=== PATIENT | female | born 1975 | race Caucasian/White ===

== ENCOUNTER 2021-07-07 13:45 | Emergency (ER) | payer MEDICAID ==
[~2021-07-07] VITALS: Ht 167.6 cm; Wt 104.5 kg
[~2021-07-07 13:45] MED LIST: CARB100T53 PO; LEVE500T53 PO; OXYC30TA86 PO; PHEN30TA42 PO; SULF-168 PO
[2021-07-07 14:01] VITALS: BP 110/99
[2021-07-07] MEDS ORDERED: METF-960 PO (15:26)
== END 2021-07-07 16:28 | disposition left against medical advice (07) ==
LOC: EMS 13:50
DX: I10 Essential (primary) hypertension (principal); Z53.21 Procedure and treatment not carried out due to patient leaving prior to being seen by health care provider

== ENCOUNTER 2021-07-26 20:46 | Emergency (ER) | payer MEDICAID ==
[~2021-07-26] VITALS: Ht 165.1 cm; Wt 99.1 kg
[~2021-07-26 20:46] MED LIST changes: -CARB100T53 PO; +METF-960 PO; -OXYC30TA86 PO; -SULF-168 PO
[2021-07-26] MEDS ORDERED: PROP10TA73 PO (21:22)
[2021-07-27] MEDS ORDERED: DiphenhydrAMINE HCL 50 MG/ML VIAL IVP STA (01:25)
[2021-07-27] MEDS ORDERED: ACETAMINOPHEN 500 MG TABLET PO ONE (01:30)
[2021-07-27] MEDS ORDERED: METOCLOPRAMIDE HCL 5 MG/ML 2 ML VIAL IVP ONE (01:30)
[2021-07-27 01:47] LABS: BASOPHILS % (AUTO) 0.4 % (0.0-2.0); EOSINOPHILS % (AUTO) 2.8 % (1.0-6.0); HEMATOCRIT 42.5 % (36-46); HEMOGLOBIN 13.8 g/dL (12.0-16.0); LYMPHOCYTES # (AUTO) 2.1 K/uL (1.0-4.8); LYMPHOCYTES % (AUTO) 34.3 % (22.0-44.0); MEAN CORPUSCULAR HEMOGLOBIN 29.8 pg (26.0-34.0); MEAN CORPUSCULAR HGB CONC 32.4 G/dL (31.0-37.0); MEAN CORPUSCULAR VOLUME 92 fL (80-100); MONOCYTES # (AUTO) 0.8 K/uL (0.1-1.0); NEUTROPHILS % (AUTO) 49.5 % (40.0-70.0); PLATELET COUNT (AUTO) 344 K/uL (150-450); RED BLOOD CELL COUNT(AUTO) 4.61 MIL/uL (4.00-5.20); RED CELL DISTRIBUTION WIDTH 13.6 % (11.5-14.5)
[2021-07-27 01:57] LABS: ANION GAP 12 mmol/L (8-16); CALCIUM, TOTAL 8.6 mg/dL (8.8-10.5); CARBON DIOXIDE 29 mmol/L (22-29); CHLORIDE 102 mmol/L (98-107); CREATININE 0.94 mg/dL (0.60-1.30); GLOMERULAR FILTR. RATE CALC > 60 mL/min (>60); GLUCOSE,RANDOM 85 mg/dL (70-110); POTASSIUM 3.9 mmol/L (3.5-5.1); SODIUM SERUM 143 mmol/L (136-145); UREA NITROGEN, BLOOD 11 mg/dL (7-18)
[2021-07-27 01:59] LABS: INR 2.3 (0.9-1.1); PROTHROMBIN TIME 22.5 SEC (9.4-11.6)
[2021-07-27 02:00] LABS: B-TYPE NATRIURETIC PEPTIDE 8 pg/mL (0-100)
[2021-07-27 02:22] LABS: ALANINE AMINOTRANSFERASE 29 U/L (12-78); ALBUMIN 3.6 g/dL (3.4-5.0); ALKALINE PHOSPHATASE 102 U/L (46-116); ASPARTATE AMINOTRANSFERASE 21 U/L (15-37); BILIRUBIN,TOTAL 0.2 mg/dL (0.1-1.0); CREATINE KINASE, TOTAL ONLY 104 U/L (26-192); HCG,QUANTITATIVE < 1 mIU/mL (0-6); TOTAL PROTEIN, SERUM 7.6 g/dL (6.4-8.2)
[2021-07-27] MEDS ORDERED: MORPHINE SULFATE 4 MG/ML SYRINGE IVP ONE (02:30)
[2021-07-27] MEDS ORDERED: ONDANSETRON HCL 4 MG/2 ML VIAL IVP ONE (02:30)
[2021-07-27 03:38] LABS: PROTHROMBIN TIME 10.8 SEC (9.4-11.6)
[2021-07-27 04:31] VITALS: BP 121/83
== END 2021-07-27 04:38 | disposition home or self-care (01) ==
LOC: EMS 20:59
DX: R51.9 Headache, unspecified (principal); R42 Dizziness and giddiness; F41.9 Anxiety disorder, unspecified; F31.9 Bipolar disorder, unspecified; F11.90 Opioid use, unspecified, uncomplicated; Z79.84 Long term (current) use of oral hypoglycemic drugs; Z79.899 Other long term (current) drug therapy; Z87.891 Personal history of nicotine dependence
CPT/HCPCS: 36415; 70450; 71045; 80053; 82550; 82962; 83880; 84484; 84702; 85025; 85610; 85730; 93005; 96374; 96375; 99285; J1200; J2765

== ENCOUNTER 2021-07-30 20:16 | Emergency (ER) | payer MEDICAID ==
[~2021-07-30] VITALS: Ht 165.1 cm; Wt 109.1 kg
[~2021-07-30 20:16] MED LIST changes: +PROP10TA73 PO
[2021-07-30 20:35] VITALS: BP 117/72
[2021-07-30] MEDS ORDERED: ACETAMINOPHEN 500 MG TABLET PO ONE (20:45)
[2021-07-30] MEDS ORDERED: LIDOCAINE 5% TRANSDERMAL PATCH TD ONE (20:45)
[2021-07-30] MEDS ORDERED: PHEN60TA16 PO (20:45)
[2021-07-30] MEDS ORDERED: DICLOFENAC SODIUM 1% 100 GM GEL [4GM] TP ONE (20:45)
== END 2021-07-30 21:40 | disposition home or self-care (01) ==
LOC: EMS 20:17
DX: M25.561 Pain in right knee (principal); F41.9 Anxiety disorder, unspecified; F31.9 Bipolar disorder, unspecified; F17.210 Nicotine dependence, cigarettes, uncomplicated; F11.90 Opioid use, unspecified, uncomplicated; Z79.84 Long term (current) use of oral hypoglycemic drugs
CPT/HCPCS: 99284; 73562-TC; Z7502; Z7610

== ENCOUNTER 2021-08-04 16:19 | Emergency (ER) | payer MEDICAID ==
[~2021-08-04] VITALS: Ht 167.6 cm; Wt 109.1 kg
[~2021-08-04 16:19] MED LIST changes: +LEVE500T20 PO; -LEVE500T53 PO; -PHEN30TA42 PO; +PHEN60TA16 PO
[2021-08-04] MEDS ORDERED: DiphenhydrAMINE HCL 25 MG CAPSULE PO ONE (18:30)
[2021-08-04] MEDS ORDERED: PredniSONE 20 MG TABLET PO ONE (18:30)
[2021-08-04 18:44] VITALS: BP 124/77
== END 2021-08-04 18:44 | disposition home or self-care (01) ==
LOC: EMS 16:21
DX: L50.9 Urticaria, unspecified (principal); F31.9 Bipolar disorder, unspecified; F41.9 Anxiety disorder, unspecified; Z87.891 Personal history of nicotine dependence; Z79.84 Long term (current) use of oral hypoglycemic drugs; Z79.899 Other long term (current) drug therapy
CPT/HCPCS: 99283; J7512

== ENCOUNTER 2021-08-18 20:29 | Inpatient (IN) | payer MEDICAID ==
[~2021-08-18] VITALS: Ht 162.6 cm; Wt 110.7 kg
[~2021-08-18 20:29] MED LIST changes: +METF-1211 PO; -METF-960 PO
[2021-08-18] MEDS ORDERED: SIMV-259 PO (20:36)
[2021-08-18] MEDS ORDERED: QUET200T PO (20:36)
[2021-08-18] MEDS ORDERED: BUSP15 PO (20:36)
[2021-08-18] MEDS ORDERED: HYDR50CA9 PO (20:36)
[2021-08-18] MEDS ORDERED: BUPR1FIL3 SL (20:53)
[2021-08-18] MEDS ORDERED: HALOPERIDOL 5 MG TABLET PO PRN (21:45)
[2021-08-18 22:42] LABS: BASOPHILS % (AUTO) 0.5 % (0.0-2.0); EOSINOPHILS % (AUTO) 6.1 % (1.0-6.0); HEMATOCRIT 43.4 % (36-46); HEMOGLOBIN 14.3 g/dL (12.0-16.0); LYMPHOCYTES # (AUTO) 1.8 K/uL (1.0-4.8); MEAN CORPUSCULAR HEMOGLOBIN 29.7 pg (26.0-34.0); MEAN CORPUSCULAR HGB CONC 32.9 G/dL (31.0-37.0); MEAN CORPUSCULAR VOLUME 90 fL (80-100); MONOCYTES # (AUTO) 1.3 K/uL (0.1-1.0); MONOCYTES % (AUTO) 13.6 % (2.0-9.0); NEUTROPHILS # (AUTO) 5.8 K/uL (1.8-7.7); NEUTROPHILS % (AUTO) 60.8 % (40.0-70.0); PLATELET COUNT (AUTO) 271 K/uL (150-450); RED CELL DISTRIBUTION WIDTH 14.2 % (11.5-14.5)
[2021-08-18] MEDS ORDERED: PROPRANOLOL HCL 10 MG TABLET PO ONE (22:45)
[2021-08-18] MEDS ORDERED: MetFORMIN HCL 500 MG TABLET PO ONE (22:45)
[2021-08-18] MEDS ORDERED: BUPRENORPHINE HCL/NALOXONE HCL 2-0.5 MG SUBLINGUAL TABLET SL ONE (22:45)
[2021-08-18 22:53] LABS: ANION GAP 11 mmol/L (8-16); CALCIUM, TOTAL 8.8 mg/dL (8.8-10.5); CARBON DIOXIDE 26 mmol/L (22-29); CHLORIDE 104 mmol/L (98-107); CREATININE 0.79 mg/dL (0.60-1.30); GLOMERULAR FILTR. RATE CALC > 60 mL/min (>60); GLUCOSE,RANDOM 109 mg/dL (70-110); POTASSIUM 4.1 mmol/L (3.5-5.1); SALICYLATE 3.9 mg/dL (2.8-20.0); SODIUM SERUM 141 mmol/L (136-145); UREA NITROGEN, BLOOD 15 mg/dL (7-18)
[2021-08-18 22:58] LABS: ALANINE AMINOTRANSFERASE 24 U/L (12-78); ALBUMIN 3.5 g/dL (3.4-5.0); ALKALINE PHOSPHATASE 73 U/L (46-116); ASPARTATE AMINOTRANSFERASE 15 U/L (15-37); BILIRUBIN,TOTAL 0.3 mg/dL (0.1-1.0); TOTAL PROTEIN, SERUM 7.2 g/dL (6.4-8.2)
[2021-08-18 23:01] LABS: ACETAMINOPHEN < 2 mcg/mL (10-30)
[2021-08-18 23:04] LABS: AMPHET/METH SCREEN,URINE NEGATIVE (NEGATIVE); BARBITURATE SCREEN, URINE POSITIVE (NEGATIVE); BENZODIAZEPINES SCREEN,URINE NEGATIVE (NEGATIVE); CANNABINOID SCREEN,URINE NEGATIVE (NEGATIVE); COCAINE SCREEN,URINE NEGATIVE (NEGATIVE); METHADONE SCREEN, URINE NEGATIVE (NEGATIVE); OPIATE SCREEN,URINE NEGATIVE (NEGATIVE)
[2021-08-18 23:05] LABS: PHENCYCLIDINE SCREEN,URINE NEGATIVE (NEGATIVE)
[2021-08-18 23:27] LABS: APPEARANCE,URINE CLEAR (CLEAR); BILIRUBIN,URINE NEGATIVE (NEGATIVE); GLUCOSE, URINE (UA) NEGATIVE (NEGATIVE); KETONES,URINE TRACE mg/dL (NEGATIVE); LEUKOCYTE ESTERASE ,URINE NEGATIVE (NEGATIVE); NITRATE,URINE NEGATIVE (NEGATIVE); OCCULT BLOOD,URINE NEGATIVE (NEGATIVE); PROTEIN,URINE NEGATIVE (NEGATIVE)
[2021-08-18 23:45] LABS: COVID AG,FIA SOURCE NASOPHARYNGEAL
[2021-08-19 02:32] VITALS: BP 110/54
[2021-08-19] MEDS ORDERED: INFLUENZA VIRUS VACCINE QVS 2021-22 (6MO+)/PF 60 MCG/0.5 ML SYRINGE IM. ONE (04:00)
[2021-08-19] MEDS ORDERED: PNEUMOCOCCAL VACCINE POLYVALENT 0.5 ML VIAL [PPSV23] IM. ONE (04:00)
[2021-08-19 08:14] VITALS: BP 114/60
[2021-08-19 08:20] LABS: CHOL/HDL RATIO 4.5 (3.9-5.7)
[2021-08-19] MEDS ORDERED: ACETAMINOPHEN 325 MG TABLET PO PRN (08:45)
[2021-08-19] MEDS ORDERED: BENZOCAINE/MENTHOL LOZENGE PO PRN (08:45)
[2021-08-19] MEDS ORDERED: ONDANSETRON HCL 4 MG TABLET PO PRN (08:45)
[2021-08-19] MEDS ORDERED: OMEPRAZOLE 20 MG CAPSULE PO PRN (08:45)
[2021-08-19] MEDS ORDERED: CloNIDine HCL 0.1 MG TABLET PO PRN (08:45)
[2021-08-19] MEDS ORDERED: BACITRACIN 28 GM OINTMENT TP PRN (08:45)
[2021-08-19] MEDS ORDERED: PETROLATUM,WHITE 28 GM JELLY TP PRN (08:45)
[2021-08-19] MEDS ORDERED: LOPERAMIDE HCL 2 MG CAPSULE PO PRN (08:45)
[2021-08-19] MEDS ORDERED: MAG HYDROX/AL HYDROX/SIMETH ES 30 ML SUSPENSION UDCUP PO PRN (08:45)
[2021-08-19] MEDS ORDERED: MAGNESIUM HYDROXIDE SUSPENSION 30 ML UDCUP PO PRN (08:45)
[2021-08-19] MEDS ORDERED: ALBUTEROL SULFATE HFA 90 MCG/PUFF 8 GM INHALER IH PRN (08:45)
[2021-08-19] MEDS ORDERED: DOCUSATE SODIUM 100 MG CAPSULE PO PRN (08:45)
[2021-08-19] MEDS: OMEGA-3/DHA/EPA/FISH OIL 1,000 MG CAPSULE PO SCH (09:09)
[2021-08-19] MEDS: LevETIRAcetam 500 MG TABLET PO SCH ×2 (09:09→16:19)
[2021-08-19] MEDS: PROPRANOLOL HCL 10 MG TABLET PO SCH ×2 (09:12→16:19)
[2021-08-19] MEDS: SERTRALINE HCL 50 MG TABLET PO SCH (16:19)
[2021-08-19 16:40] VITALS: BP 110/65
[2021-08-19 16:47] LABS: GLUCOMETER DEV NAME(LOC) ERT.5; GLUCOSE,POINT OF CARE 129 MG/DL (70-110)
[2021-08-19] MEDS ORDERED: SERTRALINE HCL 50 MG TABLET PO SCH (17:00)
[2021-08-19] MEDS: DIVALPROEX SODIUM 500 MG ER TABLET PO SCH (17:58)
[2021-08-19] MEDS: BusPIRone HCL 15 MG TABLET PO SCH (17:59)
[2021-08-19] MEDS: SIMVASTATIN 10 MG TABLET PO SCH (20:13)
[2021-08-19] MEDS: QUEtiapine FUMARATE 200 MG TABLET PO SCH (20:14)
[2021-08-20 00:25] VITALS: BP 108/71
[2021-08-20 08:03] VITALS: BP 100/60
[2021-08-20] MEDS: BusPIRone HCL 15 MG TABLET PO SCH ×2 (08:42→17:49)
[2021-08-20] MEDS: LevETIRAcetam 500 MG TABLET PO SCH ×2 (08:43→17:28)
[2021-08-20] MEDS: OMEGA-3/DHA/EPA/FISH OIL 1,000 MG CAPSULE PO SCH (08:43)
[2021-08-20] MEDS: SERTRALINE HCL 50 MG TABLET PO SCH (08:43)
[2021-08-20] MEDS: DIVALPROEX SODIUM 500 MG ER TABLET PO SCH ×2 (08:43→17:29)
[2021-08-20] MEDS: PROPRANOLOL HCL 10 MG TABLET PO SCH ×2 (09:00→17:00)
[2021-08-20] MEDS ORDERED: METF-911 PO (14:42)
[2021-08-20 17:15] VITALS: BP 102/76
[2021-08-20] MEDS: BUPRENORPHINE HCL/NALOXONE HCL 8-2 MG SUBLINGUAL TABLET SL SCH (17:49)
[2021-08-20] MEDS: MELATONIN 5 MG TABLET PO SCH (20:33)
[2021-08-20] MEDS: QUEtiapine FUMARATE 200 MG TABLET PO SCH (20:33)
[2021-08-20] MEDS: SIMVASTATIN 10 MG TABLET PO SCH (20:34)
[2021-08-21 00:03] VITALS: BP 100/62
[2021-08-21 08:22] VITALS: BP 125/63
[2021-08-21] MEDS: PROPRANOLOL HCL 10 MG TABLET PO SCH ×2 (08:22→16:35)
[2021-08-21] MEDS: DIVALPROEX SODIUM 500 MG ER TABLET PO SCH ×3 (08:22→16:35)
[2021-08-21] MEDS: LevETIRAcetam 500 MG TABLET PO SCH ×3 (08:22→16:35)
[2021-08-21] MEDS: OMEGA-3/DHA/EPA/FISH OIL 1,000 MG CAPSULE PO SCH (08:22)
[2021-08-21] MEDS: BusPIRone HCL 15 MG TABLET PO SCH ×2 (08:23→16:35)
[2021-08-21] MEDS: SERTRALINE HCL 50 MG TABLET PO SCH (08:23)
[2021-08-21] MEDS: BUPRENORPHINE HCL/NALOXONE HCL 8-2 MG SUBLINGUAL TABLET SL SCH ×2 (08:24→16:36)
[2021-08-21 16:05] VITALS: BP 105/70
[2021-08-21] MEDS: MELATONIN 5 MG TABLET PO SCH (20:54)
[2021-08-21] MEDS: SIMVASTATIN 10 MG TABLET PO SCH (20:54)
[2021-08-21] MEDS: QUEtiapine FUMARATE 200 MG TABLET PO SCH (20:54)
[2021-08-22 01:06] VITALS: BP 119/73
[2021-08-22] MEDS: IBUPROFEN 600 MG TABLET PO PRN (07:06)
[2021-08-22] MEDS: OMEGA-3/DHA/EPA/FISH OIL 1,000 MG CAPSULE PO SCH (08:29)
[2021-08-22] MEDS: BusPIRone HCL 15 MG TABLET PO SCH ×2 (08:30→16:16)
[2021-08-22] MEDS: LevETIRAcetam 500 MG TABLET PO SCH ×3 (08:30→16:16)
[2021-08-22] MEDS: PROPRANOLOL HCL 10 MG TABLET PO SCH ×2 (08:30→16:20)
[2021-08-22] MEDS: DIVALPROEX SODIUM 500 MG ER TABLET PO SCH ×3 (08:30→16:16)
[2021-08-22] MEDS: SERTRALINE HCL 50 MG TABLET PO SCH (08:30)
[2021-08-22] MEDS: LORazepam 2 MG TABLET PO PRN (08:30)
[2021-08-22] MEDS: BUPRENORPHINE HCL/NALOXONE HCL 8-2 MG SUBLINGUAL TABLET SL SCH ×2 (08:31→16:16)
[2021-08-22 08:33] VITALS: BP 100/60
[2021-08-22 16:12] VITALS: BP 105/68
[2021-08-22] MEDS: QUEtiapine FUMARATE 200 MG TABLET PO SCH (20:15)
[2021-08-22] MEDS: MELATONIN 5 MG TABLET PO SCH (20:15)
[2021-08-22] MEDS: SIMVASTATIN 10 MG TABLET PO SCH (20:15)
[2021-08-23 00:33] VITALS: BP 112/69
[2021-08-23] MEDS: OMEGA-3/DHA/EPA/FISH OIL 1,000 MG CAPSULE PO SCH (08:21)
[2021-08-23] MEDS: SERTRALINE HCL 50 MG TABLET PO SCH (08:21)
[2021-08-23] MEDS: DIVALPROEX SODIUM 500 MG ER TABLET PO SCH ×3 (08:21→16:09)
[2021-08-23] MEDS: LevETIRAcetam 500 MG TABLET PO SCH ×3 (08:21→16:09)
[2021-08-23] MEDS: BUPRENORPHINE HCL/NALOXONE HCL 8-2 MG SUBLINGUAL TABLET SL SCH ×2 (08:21→16:09)
[2021-08-23] MEDS: PROPRANOLOL HCL 10 MG TABLET PO SCH ×2 (08:21→16:09)
[2021-08-23] MEDS: BusPIRone HCL 15 MG TABLET PO SCH ×2 (08:22→16:09)
[2021-08-23 10:39] VITALS: BP 105/66
[2021-08-23] MEDS: NICOTINE 21 MG/24 HOUR PATCH TD PRN (14:21)
[2021-08-23] MEDS ORDERED: OLANZapine 5 MG RAPDIS TABLET PO PRN (15:15)
[2021-08-23 16:06] VITALS: BP 100/65
[2021-08-23] MEDS: SIMVASTATIN 10 MG TABLET PO SCH (20:12)
[2021-08-23] MEDS: MELATONIN 5 MG TABLET PO SCH (20:12)
[2021-08-23] MEDS: OLANZapine 5 MG RAPDIS TABLET PO SCH (20:12)
[2021-08-23] MEDS: FLUoxetine HCL 20 MG CAPSULE PO SCH (20:12)
[2021-08-23] MEDS: ZOLPIDEM TARTRATE 10 MG TABLET PO PRN (20:12)
[2021-08-24 02:17] VITALS: BP 118/70
[2021-08-24] MEDS: IBUPROFEN 600 MG TABLET PO PRN (07:03)
[2021-08-24 08:14] VITALS: BP 135/80
[2021-08-24] MEDS: DIVALPROEX SODIUM 500 MG ER TABLET PO SCH ×3 (09:50→16:14)
[2021-08-24] MEDS: BusPIRone HCL 15 MG TABLET PO SCH ×2 (09:50→16:14)
[2021-08-24] MEDS: OMEGA-3/DHA/EPA/FISH OIL 1,000 MG CAPSULE PO SCH (09:51)
[2021-08-24] MEDS: LevETIRAcetam 500 MG TABLET PO SCH ×3 (09:51→16:14)
[2021-08-24] MEDS: BUPRENORPHINE HCL/NALOXONE HCL 8-2 MG SUBLINGUAL TABLET SL SCH ×2 (09:51→16:14)
[2021-08-24] MEDS: PROPRANOLOL HCL 10 MG TABLET PO SCH ×2 (09:51→16:15)
[2021-08-24 16:08] VITALS: BP 129/64
[2021-08-24] MEDS: LORazepam 2 MG TABLET PO PRN (16:15)
[2021-08-24] MEDS: NICOTINE 21 MG/24 HOUR PATCH TD PRN (16:51)
[2021-08-24] MEDS: SIMVASTATIN 10 MG TABLET PO SCH (20:03)
[2021-08-24] MEDS: FLUoxetine HCL 20 MG CAPSULE PO SCH (20:04)
[2021-08-24] MEDS: ZOLPIDEM TARTRATE 10 MG TABLET PO PRN (20:04)
[2021-08-24] MEDS: OLANZapine 5 MG RAPDIS TABLET PO SCH (20:04)
[2021-08-24] MEDS: MELATONIN 5 MG TABLET PO SCH (20:04)
[2021-08-25 01:01] VITALS: BP 118/71
[2021-08-25 08:14] VITALS: BP 104/62
[2021-08-25] MEDS: LevETIRAcetam 500 MG TABLET PO SCH ×3 (08:20→16:26)
[2021-08-25] MEDS: OMEGA-3/DHA/EPA/FISH OIL 1,000 MG CAPSULE PO SCH (08:20)
[2021-08-25] MEDS: BusPIRone HCL 15 MG TABLET PO SCH ×2 (08:20→16:26)
[2021-08-25] MEDS: DIVALPROEX SODIUM 500 MG ER TABLET PO SCH ×3 (08:20→16:26)
[2021-08-25] MEDS: BUPRENORPHINE HCL/NALOXONE HCL 8-2 MG SUBLINGUAL TABLET SL SCH ×2 (08:21→18:31)
[2021-08-25] MEDS: PROPRANOLOL HCL 10 MG TABLET PO SCH ×2 (08:29→18:30)
[2021-08-25 09:26] LABS: COVID AG,FIA SOURCE NASAL SWAB
[2021-08-25 14:46] VITALS: BP 115/60
[2021-08-25] MEDS: LORazepam 2 MG TABLET PO PRN (14:47)
[2021-08-25 17:30] VITALS: BP 119/82
[2021-08-25] MEDS: MELATONIN 5 MG TABLET PO SCH (20:30)
[2021-08-25] MEDS: FLUoxetine HCL 20 MG CAPSULE PO SCH (20:30)
[2021-08-25] MEDS: OLANZapine 10 MG RAPDIS TABLET PO SCH (20:30)
[2021-08-25] MEDS: SIMVASTATIN 10 MG TABLET PO SCH (20:30)
[2021-08-25] MEDS: ZOLPIDEM TARTRATE 10 MG TABLET PO PRN (20:41)
[2021-08-26 01:23] VITALS: BP 117/74
[2021-08-26] MEDS: LORazepam 2 MG TABLET PO PRN (01:29)
[2021-08-26] MEDS: DIVALPROEX SODIUM 500 MG ER TABLET PO SCH ×3 (08:19→16:19)
[2021-08-26] MEDS: LevETIRAcetam 500 MG TABLET PO SCH ×3 (08:19→16:19)
[2021-08-26] MEDS: OMEGA-3/DHA/EPA/FISH OIL 1,000 MG CAPSULE PO SCH (08:19)
[2021-08-26] MEDS: BUPRENORPHINE HCL/NALOXONE HCL 8-2 MG SUBLINGUAL TABLET SL SCH ×2 (08:19→16:21)
[2021-08-26] MEDS: PROPRANOLOL HCL 10 MG TABLET PO SCH ×2 (08:20→16:19)
[2021-08-26] MEDS: BusPIRone HCL 15 MG TABLET PO SCH ×2 (08:20→16:19)
[2021-08-26 08:32] VITALS: BP 106/59
[2021-08-26 16:03] VITALS: BP 112/60
[2021-08-26] MEDS: MELATONIN 5 MG TABLET PO SCH (20:40)
[2021-08-26] MEDS: FLUoxetine HCL 20 MG CAPSULE PO SCH (20:40)
[2021-08-26] MEDS: SIMVASTATIN 10 MG TABLET PO SCH (20:41)
[2021-08-26] MEDS: ZOLPIDEM TARTRATE 10 MG TABLET PO PRN (20:41)
[2021-08-26] MEDS: OLANZapine 10 MG RAPDIS TABLET PO SCH (20:41)
[2021-08-27 01:07] VITALS: BP 118/80
[2021-08-27] MEDS: PROPRANOLOL HCL 10 MG TABLET PO SCH ×2 (08:08→16:18)
[2021-08-27] MEDS: LevETIRAcetam 500 MG TABLET PO SCH ×3 (08:09→16:18)
[2021-08-27] MEDS: DIVALPROEX SODIUM 500 MG ER TABLET PO SCH ×3 (08:09→16:18)
[2021-08-27] MEDS: BUPRENORPHINE HCL/NALOXONE HCL 8-2 MG SUBLINGUAL TABLET SL SCH ×2 (08:09→16:18)
[2021-08-27] MEDS: BusPIRone HCL 15 MG TABLET PO SCH ×2 (08:09→16:18)
[2021-08-27] MEDS: OMEGA-3/DHA/EPA/FISH OIL 1,000 MG CAPSULE PO SCH (08:09)
[2021-08-27 08:10] VITALS: BP 98/54
[2021-08-27 16:07] VITALS: BP 98/67
[2021-08-27] MEDS: NICOTINE 21 MG/24 HOUR PATCH TD PRN (18:14)
[2021-08-27] MEDS: LORazepam 2 MG TABLET PO PRN (18:15)
[2021-08-27] MEDS: SIMVASTATIN 10 MG TABLET PO SCH (20:13)
[2021-08-27] MEDS: OLANZapine 10 MG RAPDIS TABLET PO SCH (20:13)
[2021-08-27] MEDS: FLUoxetine HCL 20 MG CAPSULE PO SCH (20:13)
[2021-08-27] MEDS: ZOLPIDEM TARTRATE 10 MG TABLET PO PRN (20:13)
[2021-08-27] MEDS: MELATONIN 5 MG TABLET PO SCH (20:13)
[2021-08-28] MEDS: IBUPROFEN 600 MG TABLET PO PRN (00:27)
[2021-08-28 01:35] VITALS: BP 104/69
[2021-08-28 08:38] VITALS: BP 100/69
[2021-08-28] MEDS: OMEGA-3/DHA/EPA/FISH OIL 1,000 MG CAPSULE PO SCH (08:51)
[2021-08-28] MEDS: DIVALPROEX SODIUM 500 MG ER TABLET PO SCH ×3 (08:51→16:17)
[2021-08-28] MEDS: PROPRANOLOL HCL 10 MG TABLET PO SCH ×2 (08:52→16:17)
[2021-08-28] MEDS: BusPIRone HCL 15 MG TABLET PO SCH ×2 (08:52→16:17)
[2021-08-28] MEDS: BUPRENORPHINE HCL/NALOXONE HCL 8-2 MG SUBLINGUAL TABLET SL SCH ×2 (08:52→16:17)
[2021-08-28] MEDS: LevETIRAcetam 500 MG TABLET PO SCH ×3 (08:52→16:17)
[2021-08-28 12:15] VITALS: BP 106/72
[2021-08-28] MEDS: LORazepam 2 MG TABLET PO PRN ×2 (12:19→20:14)
[2021-08-28 16:04] VITALS: BP 124/73
[2021-08-28] MEDS: FLUoxetine HCL 20 MG CAPSULE PO SCH (19:53)
[2021-08-28] MEDS: SIMVASTATIN 10 MG TABLET PO SCH (19:53)
[2021-08-28] MEDS: MELATONIN 5 MG TABLET PO SCH (19:54)
[2021-08-28] MEDS: ZOLPIDEM TARTRATE 10 MG TABLET PO PRN ×2 (19:54→21:45)
[2021-08-28] MEDS: OLANZapine 10 MG RAPDIS TABLET PO SCH (20:36)
[2021-08-29 00:29] VITALS: BP 118/71
[2021-08-29] MEDS: IBUPROFEN 600 MG TABLET PO PRN (02:00)
[2021-08-29 08:33] VITALS: BP 100/61
[2021-08-29] MEDS: OMEGA-3/DHA/EPA/FISH OIL 1,000 MG CAPSULE PO SCH (08:50)
[2021-08-29] MEDS: BusPIRone HCL 15 MG TABLET PO SCH ×2 (08:50→16:13)
[2021-08-29] MEDS: BUPRENORPHINE HCL/NALOXONE HCL 8-2 MG SUBLINGUAL TABLET SL SCH ×2 (08:50→16:13)
[2021-08-29] MEDS: DIVALPROEX SODIUM 500 MG ER TABLET PO SCH ×3 (08:50→16:13)
[2021-08-29] MEDS: PROPRANOLOL HCL 10 MG TABLET PO SCH ×2 (08:51→16:13)
[2021-08-29] MEDS: LevETIRAcetam 500 MG TABLET PO SCH ×3 (08:51→16:13)
[2021-08-29 16:15] VITALS: BP 115/71
[2021-08-29] MEDS: MELATONIN 5 MG TABLET PO SCH (20:20)
[2021-08-29] MEDS: FLUoxetine HCL 20 MG CAPSULE PO SCH (20:20)
[2021-08-29] MEDS: OLANZapine 10 MG RAPDIS TABLET PO SCH (20:21)
[2021-08-29] MEDS: SIMVASTATIN 10 MG TABLET PO SCH (20:21)
[2021-08-29] MEDS: ZOLPIDEM TARTRATE 10 MG TABLET PO PRN (20:22)
[2021-08-30 00:23] VITALS: BP 120/81
[2021-08-30 00:24] VITALS: BP 114/74
[2021-08-30] MEDS: LORazepam 2 MG TABLET PO PRN ×2 (00:24→10:54)
[2021-08-30] MEDS: IBUPROFEN 600 MG TABLET PO PRN (00:25)
[2021-08-30] MEDS: OMEGA-3/DHA/EPA/FISH OIL 1,000 MG CAPSULE PO SCH (08:18)
[2021-08-30] MEDS: BusPIRone HCL 15 MG TABLET PO SCH ×2 (08:18→16:04)
[2021-08-30] MEDS: BUPRENORPHINE HCL/NALOXONE HCL 8-2 MG SUBLINGUAL TABLET SL SCH ×2 (08:18→16:05)
[2021-08-30] MEDS: LevETIRAcetam 500 MG TABLET PO SCH ×3 (08:18→16:04)
[2021-08-30] MEDS: DIVALPROEX SODIUM 500 MG ER TABLET PO SCH ×3 (08:18→16:04)
[2021-08-30] MEDS: PROPRANOLOL HCL 10 MG TABLET PO SCH ×2 (08:18→16:05)
[2021-08-30 08:21] VITALS: BP 115/60
[2021-08-30] MEDS: NICOTINE 21 MG/24 HOUR PATCH TD PRN (10:54)
[2021-08-30 16:05] VITALS: BP 117/86
[2021-08-30 16:43] LABS: GLUCOMETER DEV NAME(LOC) POC.BV
[2021-08-30] MEDS: OLANZapine 10 MG RAPDIS TABLET PO SCH (20:15)
[2021-08-30] MEDS: SIMVASTATIN 10 MG TABLET PO SCH (20:15)
[2021-08-30] MEDS: MELATONIN 5 MG TABLET PO SCH (20:15)
[2021-08-30] MEDS: FLUoxetine HCL 20 MG CAPSULE PO SCH (20:15)
[2021-08-30] MEDS: ZOLPIDEM TARTRATE 10 MG TABLET PO PRN (20:17)
[2021-08-31 01:30] VITALS: BP 118/82
[2021-08-31] MEDS: LORazepam 2 MG TABLET PO PRN ×2 (02:42→23:23)
[2021-08-31 08:25] VITALS: BP 114/76
[2021-08-31] MEDS: BusPIRone HCL 15 MG TABLET PO SCH ×2 (10:05→16:50)
[2021-08-31] MEDS: LevETIRAcetam 500 MG TABLET PO SCH ×2 (10:05→16:50)
[2021-08-31] MEDS: DIVALPROEX SODIUM 500 MG ER TABLET PO SCH ×3 (10:06→16:50)
[2021-08-31] MEDS: PROPRANOLOL HCL 10 MG TABLET PO SCH ×2 (10:06→16:50)
[2021-08-31] MEDS: BUPRENORPHINE HCL/NALOXONE HCL 8-2 MG SUBLINGUAL TABLET SL SCH ×2 (10:06→16:52)
[2021-08-31] MEDS: OMEGA-3/DHA/EPA/FISH OIL 1,000 MG CAPSULE PO SCH (10:06)
[2021-08-31] MEDS: IBUPROFEN 600 MG TABLET PO PRN (12:53)
[2021-08-31 16:14] VITALS: BP 118/70
[2021-08-31] MEDS: NICOTINE 21 MG/24 HOUR PATCH TD PRN (17:27)
[2021-08-31] MEDS ORDERED: BUSP15 PO (18:11)
[2021-08-31] MEDS ORDERED: FLUO20CA36 PO (18:11)
[2021-08-31] MEDS ORDERED: PROP10TA72 PO (18:11)
[2021-08-31] MEDS ORDERED: MELA5TAB40 PO (18:11)
[2021-08-31] MEDS ORDERED: LEVE500T8 PO (18:11)
[2021-08-31] MEDS ORDERED: OLAN10TA26 PO (18:11)
[2021-08-31] MEDS ORDERED: OMEG-135 PO (18:11)
[2021-08-31] MEDS ORDERED: DIVA-80 PO (18:11)
[2021-08-31] MEDS ORDERED: BUPR1TAB32 SL (18:11)
[2021-08-31] MEDS: OLANZapine 10 MG RAPDIS TABLET PO SCH (20:38)
[2021-08-31] MEDS: FLUoxetine HCL 20 MG CAPSULE PO SCH (20:38)
[2021-08-31] MEDS: SIMVASTATIN 10 MG TABLET PO SCH (20:38)
[2021-08-31] MEDS: ZOLPIDEM TARTRATE 10 MG TABLET PO PRN (20:40)
[2021-08-31] MEDS: MELATONIN 5 MG TABLET PO SCH (21:00)
[2021-09-01 01:47] VITALS: BP 110/86
[2021-09-01] MEDS: BUPRENORPHINE HCL/NALOXONE HCL 8-2 MG SUBLINGUAL TABLET SL SCH (08:30)
[2021-09-01] MEDS: BusPIRone HCL 15 MG TABLET PO SCH (08:30)
[2021-09-01] MEDS: PROPRANOLOL HCL 10 MG TABLET PO SCH (08:31)
[2021-09-01] MEDS: DIVALPROEX SODIUM 500 MG ER TABLET PO SCH ×2 (08:31→12:11)
[2021-09-01] MEDS: LevETIRAcetam 500 MG TABLET PO SCH (08:31)
[2021-09-01] MEDS: OMEGA-3/DHA/EPA/FISH OIL 1,000 MG CAPSULE PO SCH (08:31)
[2021-09-01 08:33] VITALS: BP 130/73
[2021-09-01] MEDS ORDERED: LEVE500T20 PO (14:16)
[2021-09-01] MEDS ORDERED: SIMV-259 PO (14:16)
[2021-09-01 16:15] VITALS: BP 124/78
== END 2021-09-01 17:12 | disposition home or self-care (01) | DRG 751 ==
LOC: EMS 20:30 → UNDOADMIN 08-19 00:44 → B3A 08-19 00:44
PROVIDERS: ADMIT Psychiatry & Neurology Psychiatry; ATTEND Psychiatry & Neurology Psychiatry
DX: F33.3 Major depressive disorder, recurrent, severe with psychotic symptoms (principal); R45.851 Suicidal ideations; E11.9 Type 2 diabetes mellitus without complications; F41.0 Panic disorder [episodic paroxysmal anxiety]; F60.0 Paranoid personality disorder; F90.9 Attention-deficit hyperactivity disorder, unspecified type; E78.00 Pure hypercholesterolemia, unspecified; E78.5 Hyperlipidemia, unspecified; G47.00 Insomnia, unspecified; I10 Essential (primary) hypertension; K59.00 Constipation, unspecified; E66.01 Morbid (severe) obesity due to excess calories; F11.10 Opioid abuse, uncomplicated; F12.10 Cannabis abuse, uncomplicated; F14.10 Cocaine abuse, uncomplicated; G40.909 Epilepsy, unspecified, not intractable, without status epilepticus; K21.9 Gastro-esophageal reflux disease without esophagitis; Z55.9 Problems related to education and literacy, unspecified; Z59.9 Problem related to housing and economic circumstances, unspecified; Z65.3 Problems related to other legal circumstances; Z79.899 Other long term (current) drug therapy; Z87.891 Personal history of nicotine dependence; Z90.49 Acquired absence of other specified parts of digestive tract; Z91.51 Personal history of suicidal behavior; Z68.41 Body mass index [BMI] 40.0-44.9, adult; Z20.822 Contact with and (suspected) exposure to COVID-19
CPT/HCPCS: 80053; 80061; 80164; 81003; 82962; 85025; 90686; 90732; 99285; G0480; G0481; G0482; Q9967